=== PATIENT | female | born 1970 | race Caucasian/White ===

== ENCOUNTER → 2019-06-30 | Day surgery (SDC) | payer BC ==
[~2019-06-30] MED LIST: FENTANYL CITRATE/PF 100MCG/2 ML INJ ONE; MIDAZOLAM HCL 2 MG/2 ML VIAL ONE; MODAFINIL200 MG PEG; MOTRIN200 MG PO; OTEZLA PO; PROPOFOL IV EMULSION 10 MG/ML 20 ML VIAL ONE; SYNTHROID100 MCG PO
--- OUTSIDE RECORDS SUMMARY | 2019-06-30 05:54 | XMS REPORT | Clinical Summary ---
Author Author [facility] Organization [facility] Address Unknown Phone Unavailable Care Team Providers Care Hoist Worker Name Role Phone Jesús Lopez MD PCP Allergies Comments Active Allergy Reactions Severity Noted Date Hay Fever And Allergy Other (See 12/09/2015 Relief Comments) Penicillins Rash Low 11/23/2016 Medications End Date Status Medication Sig Dispensed Refills Start Date Active modafinil (PROVIGIL) 200 Take 200 mg 0 MG tablet by mouth daily. Active OTEZLA 30 mg tablet Take 1 tablet 0 by mouth 2 8 (two) times a day. Active levothyroxine (SYNTHROID, TAKE 1 90 tablet 1 LEVOXYL) 100 mcg tablet TABLET(100 9 MCG) BY MOUTH EVERY MORNING 11/07/2018 Discontinued (Reorder) levothyroxine (SYNTHROID, Take 1 tablet 90 tablet 1 LEVOXYL) 112 mcg tablet (112 mcg 8 total) by mouth every morning. 08/04/2018 acetaminophen-codeine Take 1-2 20 tablet 0 (TYLENOL WITH CODEINE #3) tablets by 8 300-30 mg per mouth every 4 tabletIndications: Injury (four) hours of right knee, initial as needed for encounter moderate pain for up to 10 days. 04/08/2019 Discontinued (Med List Cleanup) gabapentin (NEURONTIN) Take by mouth 0 100 mg capsule 2 (two) times 8 a day. 06/10/2019 Discontinued (Reorder) levothyroxine (SYNTHROID, Take 1 tablet 90 tablet 1 LEVOXYL) 100 mcg tablet (100 mcg 8 total) by mouth every morning. 04/12/2019 azithromycin (ZITHROMAX) Take 2 6 tablet 0 250 MG tablet tablets the 9 first day, then 1 tablet daily for 4 days. 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 Low back pain 12/09/2015 Morbid obesity 12/09/2015 Arthralgia of multiple joints 12/09/2015 Neck swelling 12/09/2015 Psoriasis with arthropathy 12/09/2015 Sprain of foot 12/09/2015 Encounters Care Team Description Date Type Specialty Leland Redding MD Primary osteoarthritis of left knee (Primary Dx); Acute pain of left knee 06/11/2019 Office Visit Orthopedic Surgery Jesús Lopez MD 06/10/2019 Refill Internal Medicine Rhianna Matamoros MA Acquired hypothyroidism (Primary Dx); Morbid obesity (HCC) 04/24/2019 Orders Only Internal Medicine Jesús Lopez MD Routine general medical examination at a health care facility; Acquired hypothyroidism 04/23/2019 Lab Lab Jesús Lopez MD Routine general medical examination at a health care facility (Primary Dx); Acquired hypothyroidism; Sore throat; Morbid obesity (HCC) 04/08/2019 Office Visit Internal Jesús Cornejo MD 11/07/2018 Orders Only Internal Medicine Jesús Lopez MD Acquired hypothyroidism 11/06/2018 Lab Lab Jesús Lopez MD Acquired hypothyroidism (Primary Dx); Morbid obesity (HCC) 11/06/2018 Office Visit Internal Medicine Jesús Lopez MD 11/01/2018 Refill Internal Medicine Mary Barrios MD 07/31/2018 Orders Only Family Medicine Mary Barrios MD Injury of right knee, initial encounter (Primary Dx); Pain in morales, right; Chronic pain of both knees 07/25/2018 Office Visit Internal Medicine after 06/29/2018 Immunizations Name Administration Dates Next Due DTaP 12/31/2013 Influenza (IM) 10/14/2015 Preservative Free Family History Medical History Relation Name Comments Cancer Father Colorectal Colon cancer Father Colorectal Depression Mother Osteoporosis Mother Alzheimer's disease Paternal Grandmother Seizures Sister Relation Name Status Comments Father Colorectal Mother Alive Paternal Grandmother Sister Social History Date Tobacco Use Types Packs/Day Years Used Never Smoker 0 0 Smokeless Tobacco: Never Used Tobacco Cessation: Counseling Given: No Drinks/Week oz/Week Comments Alcohol Use No Sex Assigned at Date Recorded Not on file Industry Job Start Date Occupation Not on file Not on file Not on file Travel End Travel History Travel Start No recent travel history available. Last Filed Vital Signs Reading Time Taken Comments Vital Sign 131/89 04/08/2019 7:57 AM CDT Blood Pressure 101 04/08/2019 7:57 AM CDT Pulse 36.9 C (98.4 F) 11/06/2018 2:48 PM [employer]ES [employer] Temperature 16 04/08/2019 7:57 AM CDT Respiratory Rate 99% 04/08/2019 7:57 AM CDT Oxygen Saturation - - Inhaled Oxygen Concentration 122 kg (270 lb) 06/11/2019 3:22 PM CDT Weight 170.2 cm (5' 7") 06/11/2019 3:22 PM CDT Height 42.29 06/11/2019 3:22 PM CDT Body Mass Index Plan of Treatment Health Maintenance Due Date Last Done Comments INFLUENZA VACCINE 11/06/2019 Postponed from 06/11/2019 (Patient Refused) Procedures Comments Procedure Name Priority Date/Time Associated Diagnosis XR KNEE AP STANDING Routine 06/11/2019 Acute pain of left knee BILATERAL 3:39 PM CDT XR KNEE 3 VW LEFT Routine 06/11/2019 Acute pain of left knee 3:39 PM CDT [place] ARTHROCENTESIS Routine 06/11/2019 Primary osteoarthritis of ASPIR&/INJ MAJOR JT/BURSA 3:10 PM CDT left knee W/O US HEMOGLOBIN A1C Routine 04/23/2019 Routine general medical 8:54 AM CDT examination at a health care facility THYROID STIMULATING Routine 04/23/2019 Acquired hypothyroidism HORMONE 8:54 AM CDT LIPID PANEL Routine 04/23/2019 Routine general medical 8:54 AM CDT examination at a health care facility HEPATIC FUNCTION PANEL Routine 04/23/2019 Routine general medical 8:54 AM CDT examination at a health care facility CBC WITH PLATELET AND Routine 04/23/2019 Routine general medical DIFFERENTIAL 8:54 AM CDT examination at a health care facility BASIC METABOLIC PANEL Routine 04/23/2019 Routine general medical 8:54 AM CDT examination at a health care facility POCT RAPID STREP A Routine 04/08/2019 Sore throat 8:19 AM CDT THYROID STIMULATING Routine 11/06/2018 Acquired hypothyroidism HORMONE 3:08 PM SALES [employer] XR KNEE 3 VW RIGHT Routine 07/25/2018 Injury of right knee, 2:19 PM CDT initial encounter XR KNEE 3 VW LEFT Routine 07/25/2018 Chronic pain of both 2:19 PM CDT knees XR TIBIA FIBULA 2 VW Routine 07/25/2018 Pain in morales, right RIGHT 2:19 PM CDT after 06/29/2018 Results * XR Knee Ap Standing Bilateral (06/11/2019 3:39 PM CDT) Specimen Narrative Performed At [facility] Standing AP of bilateral knee shows mild medial joint space narrowing small subchondral cyst medial tibial eminence on both knees slight varus deformity but no other acute or chronic bony abnormalities. Performing Organization Address [facility] Phone Number [employer] [address] [place] [address] * XR Knee 3 Vw Left (06/11/2019 3:39 PM CDT) Only the most recent of 2 results within the time period is included. Specimen Narrative Performed At [facility] 3 additional views of the left knee show subchondral cyst in the patella small marginal osteophytes in the medial femoral condyle consistent with early onset osteoarthritis Performing Organization Address [facility] Phone Number [employer] [address] [place] [address] * Left knee Steroid injection (06/11/2019 3:10 PM CDT) Narrative Performed At Leland Redding MD 06/11/20194:19 PM Left knee Steroid injection Consent given by: patient Timeout: Immediately prior to procedure a time out was called to verify the correct patient, procedure, equipment, call center support representative and site/side marked as required Supporting Documentation Indications: pain Procedure Details Ultrasound guided: no Location: knee - L knee Left side: Needle size: 22 G Approach: anterolateral Left knee medications administered: 80 mg methylPREDNISolone acetate 40 mg/mL (4ml of 1% lidocaine, 4ml of 0.5% marcaine ) Patient tolerance: patient tolerated the procedure well with no immediate complications * CBC with platelet and differential (04/23/2019 8:54 AM CDT) WBC 5.8 3.8 - 10.8 [facility] [employer] [facility] [place] RBC 4.73 3.80 - 5.10 [facility] Million/uL [facility] [place] HGB 13.2 11.7 - 15.5 g/dL [employer] [facility] HCT 41.1 35.0 - 45.0 % [employer] [place] MCV 86.9 80.0 - 100.0 fL [employer] [place] MCH 27.9 27.0 - 33.0 pg [employer] [place] MCHC 32.1 32.0 - 36.0 g/dL [employer] [place] RDW 13.6 11.0 - 15.0 % [employer] [place] Platelet count 262 140 - 400 [facility] Thousand/uL [employer] [place] MPV 10.8 7.5 - 12.5 fL [employer] [place] Neutrophils, 3,051 1,500 - 7,800 [facility] absolute cells/uL [employer] [place] Lymphocytes, 2,204 850 - 3,900 cells/uL [facility] absolute [facility] [place] Monocytes, 447 200 - 950 cells/uL [facility] [place] Eosinophils, 70 15 - 500 cells/uL [facility] absolute [facility] [place] Basophils, 29 0 - 200 cells/uL [facility] absolute [facility] [place] Neutrophils 52.6 % [employer] [place] Lymphocytes 38.0 % [employer] [place] Monocytes 7.7 % [employer] [place] Eosinophils 1.2 % [employer] [place] Basophils + RC 0.5 % [employer] [place] Specimen Blood Resulting Agency Comment Performing Organization Information: Site ID: [id number] Name: [facility] Address: [address] [place] [phone] Director: Kitty Thomas Performing Organization Address City/State/Zipcode Phone Number [employer] [address] [address] * Thyroid stimulating hormone (04/23/2019 8:54 AM CDT) Only the most recent of 2 results within the time period is included. TSH 1.39 mIU/L [facility] Comment: [facility] Reference [place] Range > or=20 Years0.40-4.50 Ranges First trimester0.26-2.66 Second trimester 0.55-2.73 Third trimester0.43-2.91 Specimen Blood Resulting Agency Comment Performing Organization Information: Site ID: [id number] Name: [facility] Address: [address] [place] [phone] Director: Kitty Thomas Performing Organization Address City/State/[facility] Phone [place] [address] * Hemoglobin A1c (04/23/2019 8:54 AM CDT) Hemoglobin A1C 5.1 <5.7 % of total Hgb [facility] Comment: DI[facility]NOST[facility] For the purpose of screening [place] for the presence of diabetes: <5.7% Consistent with the absence of diabetes 5.7-6.4%Consistent with increased risk for diabetes (predi abetes) > or=6.5%Consistent with diabetes This assay result is consistent with a decreased risk of diabetes. Currently, no consensus exists regarding use of hemoglobin A1c for diagnosis of diabetes in children. According to [place] Diabetes Association (ADA) guidelines, hemoglobin A1c <7.0% represents optimal control in non- diabetic patients. Different metrics may apply to specific patient populations. Standards of Medical Care in Diabetes(ADA). Specimen Blood Resulting Agency Comment Performing Organization Information: Site ID: [id number] Name: [facility] Address: [address] [place] [phone] Director: Kitty Thomas Performing Organization Address City/State/Zipcode Phone Number [employer] [place] [phone] * Hepatic function panel (04/23/2019 8:54 AM CDT) Protein 6.4 6.1 - 8.1 g/dL [facility] [employer] [place] Albumin, S 3.8 3.6 - 5.1 g/dL [facility] [employer] [place] Globulin, total 2.6 1.9 - 3.7 g/dL [facility] (calc) [facility] [place] Albumin/globuli 1.5 1.0 - 2.5 (calc) [facility] n ratio [facility] [place] Total bilirubin 0.5 0.2 - 1.2 mg/dL [facility] [place] Bilirubin 0.1 < OR=0.2 mg/dL [facility] direct [facility] [place] Bilirubin, 0.4 0.2 - 1.2 mg/dL [facility] indirect (calc) [facility] [place] Alkaline 52 33 - 115 U/L [facility] phosphatase [facility] [place] AST 12 10 - 35 U/L [facility] [place] ALT 16 6 - 29 U/L [facility] [place] Specimen Blood Resulting Agency Comment Performing Organization Information: Site ID: [id number] Name: [facility] Address: [address] [place] [phone] Director: Kitty Thomas Performing Organization Address City/State/Zipcode Phone Number [facility] [employer] [place] [address] [place], [place] [address] * Lipid panel (04/23/2019 8:54 AM CDT) Pathologist [facility] Cholesterol, 254 (H) <200 mg/dL [facility] total [facility] [place] HDL cholesterol 51 >50 mg/dL [facility] [place] Triglycerides 74 <150 mg/dL [facility] [place] LDL cholesterol 185 (H) mg/dL (calc) [facility] calculated Comment: DIAGNOSTICS Reference range: <100 [place] Desirable range <100 mg/dL for primary prevention; <70 mg/dL for patients with CHD or diabetic patients with > or=2 CHD risk factors. LDL-C is now calculated using the Jose-Armani calculation, which is a validated novel method providing better accuracy than the Friedewald equation in the estimation of LDL-C. Jose STOKES et al. EDGAR. 2013;310(19): 4968-5911 (http://education.[employer].com/faq/CAW468) Cholesterol/HDL 5.0 (H) <5.0 (calc) [facility] ratio [facility] [place] Non-HDL 203 (H) <130 mg/dL (calc) [facility] cholesterol Comment: DIAGNOSTICS For patients with diabetes [place] plus 1 major ASCVD risk factor, treating to a non-HDL-C goal of <100 mg/dL (LDL-C of <70 mg/dL) is considered a therapeutic option. Specimen Blood Resulting Agency Comment Performing Organization Information: Site ID: [id number] Name: [facility] Address: [address] [place] [phone] Director: Kitty Thomas Performing Organization Address [facility] Phone Number [employer] [address] [address] * Basic metabolic panel (04/23/2019 8:54 AM CDT) [facility] Glucose 88 65 - 99 mg/dL [facility] Comment: DIAGNOSTICS Fasting [place] reference interval BUN, whole 14 7 - 25 mg/dL [facility] blood [facility] [place] Creatinine 0.85 0.50 - 1.10 mg/dL [facility] [place] EGFR Non-Afr. 81 > OR=60 [facility] [place] mL/min/1.73m2 [facility] [place] EGFR 94 > OR=60 [facility] [place] mL/min/1.73m2 [facility] [place] BUN/creatinine NOT APPLICABLE 6 - 22 (calc) [facility] ratio [facility] [place] Sodium 140 135 - 146 mmol/L [facility] [place] Potassium 4.3 3.5 - 5.3 mmol/L [facility] [place] Chloride 106 98 - 110 mmol/L [facility] [place] CO2 29 20 - 32 mmol/L [facility] [place] Calcium 9.3 8.6 - 10.2 mg/dL [facility] Specimen Blood Resulting Agency Comment Performing Organization Information: Site ID: [id number] Name: [facility] Address: [address] [place] [phone] Director: Kitty Thomas Performing Organization Address [facility] Phone Number [facility] [employer] [address] [address] * POC rapid strep A (04/08/2019 8:19 AM CDT) Pathologist [facility] Rapid strep A Positive (A) Negative antigen result Specimen Swab * XR Tibia Fibula 2 Vw Right (07/25/2018 2:19 PM CDT) Specimen Narrative Performed At Examination: Right lower leg. HM [facility] CLINICAL HISTORY: M79.661 Pain in right lower leg, fall last weektender numb right lateral morales TECHNIQUE: 2 views. FINDINGS: There are no fractures and no subluxations. There are no signs of a foreign body. The soft tissues are unremarkable. IMPRESSION: Unremarkable tibia and fibula. There are soft tissue calcifications at the Achilles tendon insertion site into the posterior os calcis. [id number] Procedure Note Interface, Radiology Results Incoming - 07/25/2018 2:44 PM CDT Examination: Right lower leg. CLINICAL HISTORY: M79.661 Pain in right lower leg, fall last week tender numb right lateral morales TECHNIQUE: 2 views. FINDINGS: There are no fractures and no subluxations. There are no signs of a foreign body. The soft tissues are unremarkable. IMPRESSION: Unremarkable tibia and fibula. There are soft tissue calcifications at the Achilles tendon insertion site into the posterior os calcis. [id number] Performing Organization Address [facility] Phone Number [facility] [address] [place] [address] * XR Knee 3 Vw Right (07/25/2018 2:19 PM CDT) Specimen Narrative Performed At EXAMINATION:XR KNEE 3 VW RIGHT [facility] CLINICAL HISTORY:S89.91XA Unspecified injury of right lower leginitial encounter, chronic knee painacute injury COMPARISON:None. IMPRESSION: There is no evidence of right knee fracture, dislocation, or joint effusion. Bone mineralization is normal. There is moderate degenerative narrowing of the medial femoral tibial joint compartment. [id number] Procedure Note Interface, Radiology Results Incoming - 07/25/2018 2:41 PM CDT EXAMINATION: XR KNEE 3 VW RIGHT CLINICAL HISTORY: S89.91XA Unspecified injury of right lower leg initial encounter, chronic knee pain acute injury COMPARISON: None. IMPRESSION: There is no evidence of right knee fracture, dislocation, or joint effusion. Bone mineralization is normal. There is moderate degenerative narrowing of the medial femoral tibial joint compartment. [id number] Performing Organization Address [facility] Phone Number [facility] [address] [place] [address] after 06/29/2018 Insurance Type Payer Benefit Subscriber ID Effective Phone Address Plan / Dates Group PPO BCBS BCBS xxxxxxxxxxxx [id number] CHOICE resent PPO/ROLF GUILLORY PPO
--- NOTE | 2019-06-30 08:37 | Operative Report ---
DATE OF PROCEDURE: 06/30/2019 SURGEON: New Armstrong MD PROCEDURE: Colonoscopy. INDICATIONS FOR THE PROCEDURE: Colon cancer screening. DESCRIPTION OF PROCEDURE: After informed and written consent, premedications with monitored anesthesia care, standard adult video Olympus colonoscope was introduced into the rectum and all the way into the terminal ileum. FINDINGS: As follows: The terminal ileum, cecum, ileocecal valve, ascending colon, and transverse colon were normal. At the splenic flexure, there was a 1 cm sessile polyp, which was removed using a hot snare polypectomy. The polyp was removed completely and suctioned and sent off for pathology. The descending colon appeared to be normal. The sigmoid colon showed mild diverticulosis. Retroflexion in the rectum was normal. IMPRESSION: Diverticulosis, colon polyp. RECOMMENDATION: Avoid aspirin and NSAIDs for two weeks. Colonoscopy in three years. Follow up in the office in 2 to 3 weeks to discuss the results of the pathology and the findings of the colonoscopy. New Armstrong MD SR/MODL /[id number] cc: John Espinosa MD
[2019-06-30 08:40] VITALS: BP 115/72
== END | disposition home or self-care (01) ==
LOC: OR 05:48
PROVIDERS: ATTEND Internal Medicine Gastroenterology
DX: Z12.11 Encounter for screening for malignant neoplasm of colon (principal); D12.3 Benign neoplasm of transverse colon; K57.30 Diverticulosis of large intestine without perforation or abscess without bleeding; Z71.3 Dietary counseling and surveillance; E66.01 Morbid (severe) obesity due to excess calories; D64.9 Anemia, unspecified; E03.9 Hypothyroidism, unspecified; E66.9 Obesity, unspecified; L40.50 Arthropathic psoriasis, unspecified; R53.83 Other fatigue; Z88.0 Allergy status to penicillin; Z68.42 Body mass index [BMI] 45.0-49.9, adult; Z87.891 Personal history of nicotine dependence; Z80.0 Family history of malignant neoplasm of digestive organs
CPT/HCPCS: 45385; 81025; J2250; J2704; J3010